=== PATIENT | male | born 1990 | race Caucasian/White ===

== ENCOUNTER 2018-05-24 19:11 | Emergency (ER) | payer SELFPAY ==
[~2018-05-24] VITALS: Ht 198.1 cm; Wt 125.0 kg
[~2018-05-24 19:11] MED LIST: NAPROSYN375 MG PO; NO DAILY MEDS; PENICILLIN V P500 MG OR; PENICILLN VK250 MG OR
[2018-05-24 20:01] LABS: HEMATOCRIT 43.3 % (39.0-50.0); IMMATURE GRANULOCYTES 0.3 % (0.0-5.0); MEAN CELL VOLUME 88.5 fL CALC (80.0-100.0); MEAN CORPUSCULAR HGB 31.1 pG CALC (26.0-32.0); MEAN CORPUSCULAR HGB CONC 35.1 g/L CALC (32.0-36.0); NEUT# 7.28 thou/uL (1.82-7.42); RED BLOOD COUNT 4.89 mill/uL (4.70-6.10); RED CELL DISTRI WIDTH 12.2 % (11.5-15.5)
[2018-05-24 20:03] LABS: HEMOGLOBIN 15.2 g/dl (14.0-18.0)
[2018-05-24 20:06] LABS: URINE BLOOD DIPSTICK NEGATIVE (NEGATIVE); URINE GLUCOSE - DIPSTICK NEGATIVE (NEGATIVE); URINE KETONE NEGATIVE (NEGATIVE); URINE LEUK ESTERASE NEGATIVE (NEGATIVE); URINE NITRITE - DIPSTICK NEGATIVE (Negative); URINE PROTEIN - DIPSTICK TRACE mg/dL (NEG-TRACE); URINE SPECIFIC GRAVITY >=1.030
[2018-05-24 20:07] LABS: URINE BILIRUBIN - DIPSTICK NEGATIVE (NEGATIVE); URINE CLARITY CLEAR; URINE COLOR DK. YELLOW
[2018-05-24 20:09] LABS: BARBITURATES NEGATIVE (NEGATIVE); COCAINE NEGATIVE (NEGATIVE); METHADONE NEGATIVE (NEGATIVE); OXCYCODONE NEGATIVE (NEGATIVE); TETRAHYDROCANNABIONOL NEGATIVE (NEGATIVE); TRICYLIC ANTIDEPRESSANTS NEGATIVE (NEGATIVE)
[2018-05-24 20:14] LABS: ALBUMIN 4.8 g/dL (3.2-5.0); ALKALINE PHOSPHATASE 140 u/l (38-126); ANION GAP 15 (6-22 (CALC)); BILIRUBIN, TOTAL 2.7 mg/dL (0.0-1.4); BUN 14 mg/dL (9-20); BUN/CREATININE RATIO 16 (12-20 (CALC)); CARBON DIOXIDE 27 mmol/l (22-30); CHLORIDE 108 mmol/l (95-108); CREATININE 0.9 mg/dL (0.7-1.3); GFR > 60 ML/MIN (>=60 (CALC)); GFR FOR AFR.AMER. > 60 ML/MIN (>=60 (CALC)); POTASSIUM 4.1 mmol/l (3.5-5.1); SGOT/AST 280 u/l (17-59); SGPT/ALT 217 u/l (21-72); SODIUM 146 mmol/l (137-146)
[2018-05-24 20:35] LABS: AMYLASE 5761 u/l (30-110)
[2018-05-24 20:57] LABS: LIPASE 50014 u/l (23-300)
[2018-05-25 01:13] VITALS: BP 131/73
== END 2018-05-25 01:11 | DRG 446 ==
LOC: ED 19:11
DX: K81.0 Acute cholecystitis (principal); R79.89 Other specified abnormal findings of blood chemistry; E80.6 Other disorders of bilirubin metabolism; K52.9 Noninfective gastroenteritis and colitis, unspecified

== ENCOUNTER 2019-02-24 08:53 | Observation (INO) | payer SELFPAY ==
[~2019-02-24] VITALS: Ht 198.1 cm; Wt 119.3 kg
--- NOTE | 2019-02-24 09:00 | NUR ---
PT STATES HAVING WORSENING ABDOMINAL PAIN FOR THE PAST 2 DAYS. STATES HE WAS DIAGNOISED WILL GALLBLADDER SLUDGE AND STONES A FEW MONTHS AGO- AND NEEDS TO HAVE IT REMOVED. PT IS AOX4. STATES HAVING NAUSEA/ VOMITING AND DIRRAHEA FOR THE PAST 2 DAYS. DENIES ANY C/P, SOB OR WEAKNESS.
[2019-02-24 09:30] LABS: IMMATURE GRANULOCYTES 0.3 % (0.0-5.0); MEAN CELL VOLUME 87.1 fL CALC (80.0-100.0); MEAN CORPUSCULAR HGB 30.4 pG CALC (26.0-32.0); MEAN CORPUSCULAR HGB CONC 34.9 g/L CALC (32.0-36.0); NEUT# 6.92 thou/uL (1.82-7.42); RED BLOOD COUNT 5.75 mill/uL (4.70-6.10)
[2019-02-24 09:33] LABS: HEMATOCRIT 50.1 % (39.0-50.0); HEMOGLOBIN 17.5 g/dl (14.0-18.0)
[2019-02-24 09:40] LABS: ALBUMIN 5.7 g/dL (3.2-5.0); BILIRUBIN, TOTAL 1.9 mg/dL (0.0-1.4); TOTAL PROTEIN 9.5 g/dL (6.3-8.2)
[2019-02-24 09:41] LABS: CREATININE 1.9 mg/dL (0.7-1.3)
--- NOTE | 2019-02-24 10:00 | NUR ---
PT RESTING ON STRETCHER, GIVEN ICE CHIPS.
--- NOTE | 2019-02-24 11:00 | NUR ---
PT RESTING ON STRETCHER. MORE ICE CHIPS GIVEN- NO NAUSEA NOTED
--- NOTE | 2019-02-24 11:50 | NUR ---
PT AMBULATED TO RESTROOM AND BACK TO ROOM WITH STEADY GAIT
[2019-02-24 12:07] LABS: URINE BLOOD DIPSTICK NEGATIVE (NEGATIVE); URINE COLOR YELLOW; URINE GLUCOSE - DIPSTICK NEGATIVE (NEGATIVE); URINE KETONE TRACE mg/dL (NEGATIVE); URINE LEUK ESTERASE TRACE (NEGATIVE); URINE NITRITE - DIPSTICK NEGATIVE (Negative); URINE PROTEIN - DIPSTICK 100 mg/dL (NEG-TRACE); URINE UROBILINOGEN - DIPSTICK 0.2 E.U./dL (0.2)
[2019-02-24 12:09] LABS: URINE BILIRUBIN - DIPSTICK NEGATIVE (NEGATIVE)
[2019-02-24 12:13] LABS: URINE WBC 0-2 WBC/hpf (0-5)
[2019-02-24 12:14] LABS: URINE RBC 0-2 RBC/hpf (0-5); URINE SQUAMOUS EPITHELIAL CELL FEW EPI/hpf (0-FEW); URINE TRANSITIONAL EPI. CELLS FEW hpf
[2019-02-24 12:15] LABS: URINE CALCIUM OXALATE CRYSTALS FEW lpf; URINE HYALINE CAST MANY lpf (NONE-RARE)
--- NOTE | 2019-02-24 13:11 | NUR ---
PT RESTING ON STRETHCER, INFORMED OF WAIT TIME FOR ADMISSION
--- NOTE | 2019-02-24 13:20 | NUR ---
REPROT CALLED TO [facility]- DOMONIQUE COIL WINDER ACCEPTED PT
[2019-02-24 13:26] VITALS: BP 123/89
--- NOTE | 2019-02-24 13:30 | NUR ---
PT ARRIVED TO FLOOR VIA W/C ACCOMPANIED BY MIKE ROBB IN STABLE CONDITION; PT A/O X4; AMBULATORY ON FEET; WT AND VITALS OBTAINED; PT STATED NOT BEING ABLE TO EAT OR DRINK FOR PAST TWO DAYS; VOMITED ONCE THIS MORNING THICK PHLEGM. VITALS STABLE; C/O OF ABD PAIN 04/12; #20G LH, S/L; ORIENT TO ROOM AND CALL YIN SYSTEM; URINAL AT BEDSIDE; SAFETY PRECUATION REINFORCE;
--- NOTE | 2019-02-24 13:30 | NUR ---
Admission Note Report Given to: DOMONIQUE DOTSON Transported by: Wheelchair X Stretcher Transported with: X Nurse Transporter X Patent IV [facility] Regional Liaison TRANSPORTED TO 278 WITHOUT INCIDENT
[2019-02-24 15:05] VITALS: BP 112/69
--- NOTE | 2019-02-24 15:06 | NUR ---
PT UP TO THE RESTROOM; NO RELIEF FROM DILAUDID, DR KINCAID AWARE; DR AT BEDSIDE TO DISCUSS POC.
--- NOTE | 2019-02-24 17:49 | NUR ---
PT SITTING UP IN BED WATCHING TV AND ON HIS AMANDA; PAIN 03/13, REFUSING PAIN MEDS AT THIS TIME; REMAIN NPO BUT CAN HAVE ICE CHIPS; #20G LH, D5NS INFUSING @75CC/HR; AMBULATORY ON FEET; CALL YIN IN REACH; SAFETY PRECAUTION REINFORCE;
[2019-02-24 19:11] VITALS: BP 120/79
--- NOTE | 2019-02-24 20:20 | NUR ---
PT. IS RESTING IN BED WITH NO DISTRESS NOTED. REPORTS UPPER ABD PAIN 6/10, BUT DECLINES WANTING PAIN MEDICATION, INSTRUCTED TO CALL WHEN READY FOR PAIN MEDICATION AND VERBALIZES UNDERSTANDING. UPDATED ON POC. ICE CHIPS PROVIDED. IV SITE PATENT AND INFUSING ORDERED IVF WELL. INSTRUCTED TO USE URINAL FOR ALL VOIDS. CALL LIGHT IS IN REACH. WILL CONTINUE TO MONITOR.
--- NOTE | 2019-02-24 21:55 | NUR ---
PT. C/O UPPER ABD PAIN 05/13, MEDICATED WITH ORDERED DILAUDID AND ZOFRAN. PT. ALSO REPORTING INDEIGESTION AND THAT HE NORMALLY TAKES OVER THE COUNTER MEDICATIONS NEEDED AT HOME, NOTIFIED DR. SINGH OF THIS AND NEW ORDERS RECEIVED. AWAITING PHARMACY TO VERIFY.
--- NOTE | 2019-02-25 00:12 | NUR ---
PT. RESTING IN BED, NO DISTRESS NOTED. DENIES NEEDS. SCHED ABT HUNG AND UPDATED ON POC. CALL LIGHT IS IN REACH.
[2019-02-25 03:39] VITALS: BP 123/82
[2019-02-25 04:08] LABS: IMMATURE GRANULOCYTES 0.5 % (0.0-5.0); MEAN CELL VOLUME 91.4 fL CALC (80.0-100.0); MEAN CORPUSCULAR HGB 30.7 pG CALC (26.0-32.0); MEAN CORPUSCULAR HGB CONC 33.6 g/L CALC (32.0-36.0); NEUT# 3.11 thou/uL (1.82-7.42); RED BLOOD COUNT 4.76 mill/uL (4.70-6.10); RED CELL DISTRI WIDTH 12.1 % (11.5-15.5)
[2019-02-25 04:12] LABS: HEMATOCRIT 43.5 % (39.0-50.0); HEMOGLOBIN 14.6 g/dl (14.0-18.0)
[2019-02-25 04:30] LABS: ALKALINE PHOSPHATASE 72 u/l (38-126); AMYLASE 51 u/l (30-110); BILIRUBIN, TOTAL 2.6 mg/dL (0.0-1.4); BUN 28 mg/dL (9-20); BUN/CREATININE RATIO 24 (12-20 (CALC)); CHLORIDE 105 mmol/l (95-108); CREATININE 1.2 mg/dL (0.7-1.3); GFR > 60 ML/MIN (>=60 (CALC)); GFR FOR AFR.AMER. > 60 ML/MIN (>=60 (CALC)); LIPASE 63 u/l (23-300); MAGNESIUM 2.3 mg/dL (1.6-2.3); POTASSIUM 4.2 mmol/l (3.5-5.1); SGOT/AST 22 u/l (17-59); SODIUM 141 mmol/l (137-146)
[2019-02-25 04:46] LABS: ALBUMIN 4.3 g/dL (3.2-5.0); ANION GAP 10 (6-22 (CALC)); CARBON DIOXIDE 30 mmol/l (22-30); TOTAL PROTEIN 6.9 g/dL (6.3-8.2)
--- NOTE | 2019-02-25 05:31 | NUR ---
PT. C/O ABD PAIN 05/13, MEDICATED WITH ORDERED DILAUDID AND ZOFRAN, WILL REASSESS. CALL LIGHT IS IN REACH.
--- NOTE | 2019-02-25 08:16 | NUR ---
PT RESTING IN BED, NO SIGNS OF DISTRESS NOTED, RESP EVEN AND UNLABORED. PT ALERT AND ORIENTED X3, DISCUSSED POC, CONTINUE NPO, IVF INFUSING. ASSESSMENT COMPLETED, VSS, CALL LIGHT IN REACH,CONTINUE TO MONITOR.
[2019-02-25 08:19] VITALS: BP 122/70
--- NOTE | 2019-02-25 11:30 | NUR ---
PT PROVIDED CLEAR LIQUIDS FOR LUNCH, AWAITING FURTHER INFO REGARDING WHEN MRCP WILL BE DONE. PT TOLERATED WELL. CALL LIGHT IN REACH,CONTINUE TO MONITOR.
--- NOTE | 2019-02-25 14:26 | NUR ---
PT MEDICATED WITH ZOFRAN FOR NAUSEA, NO EMESIS. CALL LIGHT IN REACH,CONTINUE TO MONITOR.
[2019-02-25 16:30] VITALS: BP 109/47
--- NOTE | 2019-02-25 16:32 | NUR ---
PT TAKEN DOWN TO RADILOGY FOR MRCP VIA WHEELCHAIR ACCOMPANIED BY LABOR COMMISSIONER. CONTINUE TO MONITOR.
--- NOTE | 2019-02-25 17:58 | NUR ---
PT RETUNED FROM RADIOLOGY
[2019-02-25 19:29] VITALS: BP 132/58
--- NOTE | 2019-02-25 20:20 | NUR ---
ASSESSMENT COMPLETED. IV SITE TO LH SLIGHTLY IRRITATED AND PT. REPORTS TENDERNESS TO SITE, DC'S IV SITE AND CATHETER TIP IS INTACT. NEW IV STARTED TO RH X2 ATTEMPT #22 GAUGE. PT. C/O ABD PAIN 04/12, MEDICATED WITH ORDERED ZOFRAN AND DILAUDID, WILL REASSESS. PT. AGAIN IS EDUCATED ON NEED TO USE URINAL AND VERBALIZES UNDERSTANDING. UPDATED ON POC. CALL LIGHT IS IN REACH. WILL CONTINUE TO MONITOR.
--- NOTE | 2019-02-25 23:48 | NUR ---
PT. RESTING IN BED WITH NO DISTRESS NOTED; DENIES NEEDS FOR PAIN MEDICATION. SCHED ABT HUNG. REMINDED OF NPO STATUS AND MOUTHSWABS PROVIDED. ENCOURAGED TO CALL FOR ANY AND ALL NEEDS; VERBALIZES UNDERSTANDING. CALL LIGHT IS IN REACH. WILL CONTINUE TO MONITOR.
--- NOTE | 2019-02-26 02:29 | NUR ---
PT. RESTING IN BED IN HIGH FOWLERS, NO DISTRESS NOTED. DENIES NEEDS FOR PAIN MEDICATION AT THIS TIME. ENCOURAGED TO CALL FOR ALL NEEDS. CALL LIGHT IS IN REACH. WILL CONTINUE TO MONITOR.
[2019-02-26 04:17] VITALS: BP 125/69
--- NOTE | 2019-02-26 04:27 | NUR ---
PT. RESTING IN BED WITH NO RESP. DISTRESS NOTED. C/O ABD PAIN 04/12; MEDICATED WITH ORDERED PRN DILAUDID AND ZOFRAN. WILL REASSESS. URINAL EMPTIED OF 475 MLS OF COLA COLORED URINE; ENCOURAGED TO CALL FOR ANY NEEDS. CALL LIGHT IS IN REACH.
[2019-02-26 05:25] LABS: HEMATOCRIT 41.5 % (39.0-50.0); HEMOGLOBIN 13.8 g/dl (14.0-18.0); IMMATURE GRANULOCYTES 0.2 % (0.0-5.0); MEAN CELL VOLUME 91.6 fL CALC (80.0-100.0); MEAN CORPUSCULAR HGB 30.5 pG CALC (26.0-32.0); MEAN CORPUSCULAR HGB CONC 33.3 g/L CALC (32.0-36.0); NEUT# 3.04 thou/uL (1.82-7.42); RED BLOOD COUNT 4.53 mill/uL (4.70-6.10); RED CELL DISTRI WIDTH 12.1 % (11.5-15.5)
[2019-02-26 05:41] LABS: ANION GAP 11 (6-22 (CALC)); BUN 19 mg/dL (9-20); BUN/CREATININE RATIO 21 (12-20 (CALC)); CARBON DIOXIDE 27 mmol/l (22-30); CHLORIDE 108 mmol/l (95-108); CREATININE 0.9 mg/dL (0.7-1.3); GFR > 60 ML/MIN (>=60 (CALC)); GFR FOR AFR.AMER. > 60 ML/MIN (>=60 (CALC)); MAGNESIUM 2.2 mg/dL (1.6-2.3); SODIUM 142 mmol/l (137-146)
[2019-02-26 07:30] VITALS: BP 94/54
--- NOTE | 2019-02-26 09:51 | NUR ---
CALL RECEIVED FROM TUYET PUENTES TO ASHELY ELIAS.
--- NOTE | 2019-02-26 10:00 | NUR ---
DISCUSSED WITH PT PLANS FOR TRANSFER TO [facility], PT IN AGREEMENT. VOICES NO NEEDS OR COMPLAINTS AT THIS TIME. CALL LIGHT IN REACH,CONTINUE TO MONITOR.
--- NOTE | 2019-02-26 10:06 | NUR ---
Spoke with Ruby @ [facility] transfer center regarding Dr. Martínez request for transfer for ERCP. Information provided and facesheet faxed.
--- NOTE | 2019-02-26 10:13 | NUR ---
AT BEDSIDE TO DISCUSS POC.
--- NOTE | 2019-02-26 11:25 | NUR ---
Received call at this time from Ruby bales [facility], accepting physician is Dr. Noel. Per Ruby, no bed available at this time, will call when bed is available, probably later this afternoon.
[2019-02-26 16:00] VITALS: BP 123/61
--- NOTE | 2019-02-26 16:16 | NUR ---
YONG FROM [facility] CALLED, BED PLACEMENT RECEIVED. PT TO GO TO BED 5004B.
--- NOTE | 2019-02-26 16:26 | NUR ---
PT RESTING IN BED, INFORMED PT THAT WE HAVE RECEIVED A BED NUMBER FOR PT, DISCUSSED TRANSFER, PT IN AGREEMENT. CONSENT FOR TRANFER SIGNED. VOICES NO NEEDS OR COMPLAINTS AT THIS TIME. CALL LIGHT IN REACH,CONTINUE TO MONITOR.
--- NOTE | 2019-02-26 16:27 | NUR ---
CALLED NOEMI AT SPOKE TO STEPHANY. GAVE PT NAME, , WHY HE WAS BEING TRANSFERRED, AND DIAGNOSIS. STEPHANY STATED [facility] WILL BE HERE IN 30 MINUTES. SPOKE TO NURSE TOLD HER WHAT THEY HAD SAID.
--- NOTE | 2019-02-26 16:47 | NUR ---
[facility] ARRIVED TO TRANSFER PT TO [place]. PT AMBULATED TO STRETCHER, BELONGINGS TAKEN WITH PT IN STABLE CONDITION.
--- NOTE | 2019-02-26 16:53 | NUR ---
Discharge instructions given. Patient verbalizes understanding of same. Discharged in stable condition via Medical Transport to [facility] with staff. All belongings sent with pt.
--- NOTE | 2019-02-26 17:11 | NUR ---
REPORT GIVEN TO JOAQUÍN AT [facility].
== END 2019-02-26 16:51 | disposition short-term general hospital (02) | DRG 445 ==
LOC: ED 08:53 → ED-I 11:47 → ED 12:47 → MS2 12:48
PROVIDERS: Family Medicine; Nurse Practitioner Family; ADMIT Internal Medicine Nephrology; ATTEND Internal Medicine Nephrology
DX: K80.62 Calculus of gallbladder and bile duct with acute cholecystitis without obstruction (principal); N17.9 Acute kidney failure, unspecified; E86.0 Dehydration; F17.200 Nicotine dependence, unspecified, uncomplicated; Z96.89 Presence of other specified functional implants
CPT/HCPCS: G0378